=== PATIENT | female | born 1985 | race Caucasian/White ===

== ENCOUNTER 2016-03-23 15:49 | Emergency (ER) | payer BC ==
[2016-03-23 16:35] VITALS: BP 124/83
--- NOTE | 2016-03-23 17:20 | RAD ---
INDICATION: Left foot injury COMPARISON: None TECHNIQUE: AP, lateral, and oblique views were obtained. FINDINGS: At the level of the great toe the medial sesamoid is fragmented which could be related to a sesamoid fracture. The bony structures, joint spaces, and soft tissues are otherwise unremarkable. IMPRESSION: SUSPECT FRACTURE OF THE MEDIAL SESAMOID BONE
--- NOTE | 2016-03-23 17:43 | UC ---
Lower Extremity/Ankle HPI - HPI Summary HPI Summary: YESTERDAY, FELL UP STAIRS HIT LEFT FOOT ON STAIRCASE. SINCE TIME OF INJURY HAS HAD PAIN IN (DISTAL 1ST AND 2ND METATARSAL) FOOT PAD. WORSE WITH TOUGH OR WITH WEIGHT BEARING. - History of Current Complaint Chief Complaint: UC Stated Complaint: FOOT INJURY Time Seen by Provider: 03/23/16 16:24 Hx Obtained From: Patient, Family/Carding Supervisor Hx Last Menstrual Period: March 04 Onset/Duration: Sudden Onset, Lasting Days, Still Present Severity Initially: Moderate Severity Currently: Moderate Aggravating Factor(s): Standing, Ambulation Alleviating Factor(s): Rest, Elevation, Ice Able to Bear Weight: Yes - WITH PAIN - Risk Factors Gout Risk Factors: Negative DVT Risk Factors: Negative Septic Arthritis Risk Factor: Negative - Allergies/Home Medications Allergies/Adverse Reactions: Allergies Allergy/AdvReac Type Severity Reaction Status Date / Time Hydromorphone [From Dilaudid] Allergy Severe Anaphylatic Verified 03/23/16 16:35 Shock Oxycodone [From Percocet] Allergy Severe Anaphylatic Verified 03/23/16 16:35 Shock Promethazine [From Phenergan] Allergy Severe Anaphylatic Verified 03/23/16 16:35 Shock Home Medications: Home Medications Rizatriptan ODT (NF) [Maxalt-PLAY WRITER (NF)] 10 mg PO 03/23/16 [History] PMH/Surg Hx/FS Hx/Imm Hx Previously Healthy: Yes Endocrine History Of: Denies: Diabetes, Thyroid Disease Cardiovascular History Of: Denies: Cardiac Disorders, Hypertension Respiratory History Of: Denies: COPD, Asthma GI/ History Of: Denies: Ulcer - Surgical History Surgical History: Yes Surgery Procedure, Year, and Place: ; tonsils; wisdom teeth; left knee 2 arthroscopic - Family History Known Family History: Positive: None Negative: Blood Disorder, Other - NO JOINT LAXITY - Social History Occupation: Employed Full-time Lives: With Family Alcohol Use: Occasionally Substance Use Type: None Smoking Status (MU): Never Smoked Tobacco - Immunization History Most Recent Influenza Vaccination: Dec 2012 Most Recent Tetanus Shot: 05/21 Review of Systems Constitutional: Negative Skin: Negative Eyes: Negative ENT: Negative Respiratory: Negative Cardiovascular: Negative Gastrointestinal: Negative Genitourinary: Negative Motor: Negative Neurovascular: Negative Musculoskeletal: Arthralgia - LEFT FOOT, Myalgia Neurological: Negative Psychological: Negative All Other Systems Reviewed And Are Negative: Yes Physical Exam Triage Information Reviewed: Yes Appearance: Well-Appearing, No Pain Distress, Well-Nourished Vital Signs: Initial Vital Signs Temp 98.1 F 03/23/16 16:27 Pulse 82 03/23/16 16:27 Resp 16 03/23/16 16:27 BP 124/83 03/23/16 16:27 Pulse Ox 97 03/23/16 16:27 Vital Signs Reviewed: Yes Eye Exam: Normal ENT Exam: Normal ENT: Positive: Normal ENT inspection, Hearing grossly normal, Pharynx normal, TMs normal Dental Exam: Normal Neck exam: Normal Neck: Positive: Supple, Nontender, No Lymphadenopathy Respiratory Exam: Normal Respiratory: Positive: Chest non-tender, Lungs clear, Normal breath sounds, No respiratory distress, No accessory muscle use Cardiovascular Exam: Normal Cardiovascular: Positive: RRR, No Murmur, Pulses Normal Abdominal Exam: Normal Abdomen Description: Positive: Nontender, No Organomegaly Musculoskeletal: Positive: Strength Intact, ROM Intact, Edema @ - MILD EDEMA LEFT DISTAL 1ST METATARSAL, Other: - TENDER TO PALPATION LEFT DISTAL 1ST 2ND METATARSAL Neurological Exam: Normal Psychological Exam: Normal Skin Exam: Normal Lower Extremity Course/Dx - Differential Dx/Diagnosis Differential Diagnosis/HQI/PQRI: Fracture (Closed), Fracture (Open), Sprain, Strain Provider Diagnoses: CLOSED FRACTURE OF LEFT SESAMOID BONE AT ASPECT OF FIRST DITAL METATARSAL Discharge - Discharge Plan Condition: Stable Disposition: HOME Patient Education Materials: Foot Fracture in Adults (ED), Foot Contusion (ED) Referrals: Carito Oneal NP [Primary Care Provider] - Polo Franklin MD [Medical Doctor] -
== END 2016-03-23 17:50 | disposition home or self-care (01) ==
LOC: UCEAST 15:49
DX: S92.812A Other fracture of left foot, initial encounter for closed fracture (principal); Z88.5 Allergy status to narcotic agent
CPT/HCPCS: 99213; G0463

== ENCOUNTER 2016-05-15 18:11 | Emergency (ER) | payer BC ==
[2016-05-15 19:11] VITALS: BP 107/64
[2016-05-15] MEDS ORDERED: Ondansetron ODT TAB* 4 MG PO ONE ×2 (19:12→21:32)
[2016-05-15] MEDS ORDERED: NS 0.9% 1000 ML* 1,000 ML BOLUS ONE (20:07)
[2016-05-15] MEDS ORDERED: Ondansetron INJ* 2 MG/ML VIAL IV ONE (20:07)
[2016-05-15] MEDS ORDERED: cefTRIAXone VIAL(*) 1,000 MG in NS 0.9% 50 ML* 50 ML IVPB ONE (20:07)
[2016-05-15] MEDS ORDERED: Ketorolac INJ* 30 MG/ML 1 ML VIAL IV ONE (20:08)
--- NOTE | 2016-05-15 20:08 | UC ---
Throat Pain/Nasal Alexis HPI - HPI Summary HPI Summary: 30 yo female with a 2 week hx of sinus pressure and pain/post nasal drip/sore throat/ bilateral otalgia Feverish at onset has been low energy while ill facial pressure and occipital head ache symptoms worse x days now with dizziness/nausea and vomiting x 3 today unable to tolerate PO anorexic today - History of Current Complaint Chief Complaint: UCGeneralIllness Stated Complaint: HEADACHE, COUGH Time Seen by Provider: 05/15/16 19:21 Hx Obtained From: Patient Hx Last Menstrual Period: 05/06/16 Onset/Duration: Gradual Onset, Lasting Weeks - 2 Severity: Moderate Pain Intensity: 6 Pain Scale Used: 0-10 Numeric Cough: Nonproductive Associated Signs & Symptoms: Positive: Sinus Discomfort, Nasal Discharge, Fever - first day or two, Vomiting - Epiglottits Risk Factors Epiglottis Risk Factors: Negative - Allergies/Home Medications Allergies/Adverse Reactions: Allergies Allergy/AdvReac Type Severity Reaction Status Date / Time Hydromorphone [From Dilaudid] Allergy Severe Anaphylatic Verified 05/15/16 19:00 Shock Oxycodone [From Percocet] Allergy Severe Anaphylatic Verified 05/15/16 19:00 Shock Promethazine [From Phenergan] Allergy Severe Anaphylatic Verified 05/15/16 19:00 Shock Home Medications: Home Medications Pseudoephedrine TAB* [Sudafed TAB*] 30 mg PO Q6H PRN 05/15/16 [History Confirmed 05/15/16] metFORMIN* [Glucophage 1000 MG TAB *] 1,000 mg PO DAILY 05/15/16 [History Confirmed 05/15/16] PMH/Surg Hx/FS Hx/Imm Hx Previously Healthy: Yes Endocrine History Of: Denies: Diabetes, Thyroid Disease Cardiovascular History Of: Denies: Cardiac Disorders, Hypertension, Pacemaker/ICD Respiratory History Of: Denies: COPD, Asthma GI/ History Of: Denies: Ulcer, Renal Disease Neurological History Of: Reports: Migraine - Surgical History Surgical History: Yes Surgery Procedure, Year, and Place: ; tonsils; wisdom teeth; left knee 2 arthroscopic - Family History Known Family History: Positive: Hypertension Negative: Blood Disorder, Other - NO JOINT LAXITY - Social History Alcohol Use: Rare Substance Use Type: None Smoking Status (MU): Never Smoked Tobacco - Immunization History Most Recent Influenza Vaccination: Dec 2012 Most Recent Tetanus Shot: 05/21 Review of Systems Constitutional: Fever - at onset, Chills, Fatigue Skin: Negative Eyes: Negative ENT: Sore Throat, Ear Ache, Nasal Discharge Respiratory: Cough Cardiovascular: Negative Gastrointestinal: Negative Genitourinary: Negative Motor: Negative Neurovascular: Negative Musculoskeletal: Negative Neurological: Headache Psychological: Negative All Other Systems Reviewed And Are Negative: Yes Physical Exam Triage Information Reviewed: Yes Appearance: Well-Appearing, No Pain Distress, Well-Nourished Vital Signs: Initial Vital Signs Temp 98.3 F 05/15/16 19:02 Pulse 66 05/15/16 19:02 Resp 20 05/15/16 19:02 BP 107/64 05/15/16 19:02 Pulse Ox 98 05/15/16 19:02 Vital Signs Reviewed: Yes Eyes: Positive: Conjunctiva Clear ENT: Positive: Hearing grossly normal, Pharyngeal erythema, Nasal congestion, Nasal drainage, TM bulging, Other: - left >right max and ethmoid sinus tenderness. Negative: TM dull, TM red, Tonsillar swelling, Tonsillar exudate, Trismus, Muffled/hoarse voice Dental: Negative: Abscess @ Neck: Positive: Supple, Nontender, No Lymphadenopathy Respiratory: Positive: Lungs clear, Normal breath sounds, No respiratory distress, No accessory muscle use Cardiovascular: Positive: RRR, No Murmur Musculoskeletal Exam: Normal Musculoskeletal: Positive: Strength Intact, ROM Intact Neurological Exam: Normal Neurological: Positive: Alert Psychological Exam: Normal Skin Exam: Normal Re-Evaluation - Re-Evaluation First Eval Re-Evaluation Time: 21:34 Change: Improved - no headache/nausea less Throat Pain/Nasal Course/Dx - Differential Dx/Diagnosis Provider Diagnoses: acute sinusitis. dizziness/vomiting Discharge - Discharge Plan Condition: Stable Disposition: HOME Prescriptions: Cefuroxime Axetil [Ceftin 250 MG] 250 mg PO BID #20 tab Ondansetron TAB* [Zofran 4 MG Tab*] 4 mg PO Q6H PRN #10 tab PRN Reason: Nausea Patient Education Materials: Sinusitis (ED) Referrals: Carito Oneal NP [Primary Care Provider] - 3 Days (if not better) Additional Instructions: recheck here or ER for new or worsening symptoms
[2016-05-15] MEDS ORDERED: cefTRIAXone VIAL(*) 1,000 MG VIAL ONE (20:11)
== END 2016-05-15 22:01 | disposition home or self-care (01) ==
LOC: UCCORT 18:11
DX: J01.90 Acute sinusitis, unspecified (principal); R42 Dizziness and giddiness; R11.10 Vomiting, unspecified; G43.909 Migraine, unspecified, not intractable, without status migrainosus; Z88.5 Allergy status to narcotic agent
CPT/HCPCS: 96361; 96365; 96375; 99213; G0463; J0696; J1885; J2405

== ENCOUNTER 2016-07-31 21:01 | Emergency (ER) | payer BC ==
[2016-07-31 21:15] VITALS: BP 125/87
[2016-07-31] MEDS ORDERED: Ipratropium 0.5MG/2.5ML NEB* 0.5 MG/2.5 ML NEB.SOLN INH ONE (21:24)
[2016-07-31] MEDS ORDERED: predniSONE TAB* 20 MG PO ONE (21:40)
--- NOTE | 2016-07-31 21:40 | UC ---
Respiratory Complaint HPI - HPI Summary HPI Summary: Approx 2 weeks ago developed mild runny nose and dry cough. Symptoms have been very mild until cough significantly worsened in the last 1-2 days. Now constant dry cough; denies wheezing or trouble breathing. No fever, ST, facial pain, rash , or vomiting. - History of Current Complaint Chief Complaint: UCRespiratory Stated Complaint: COUGH X 2 WEEKS Time Seen by Provider: 07/31/16 21:15 Hx Obtained From: Patient Hx Last Menstrual Period: 07/06/16 ?: No Onset/Duration: Gradual Onset, Lasting Weeks Timing: Constant Severity Initially: Mild Severity Currently: Moderate Character: Cough: Nonproductive Aggravating Factors: Deep Breaths, Recumbent Position Alleviating Factors: Upright Position Associated Signs And Symptoms: Positive: Nasal Congestion. Negative: Fever, Chills, Wheezing, Calf Pain, Calf Swelling - Risk Factors Cardiac Risk Factors: Negative Pseudomonas Risk Factors: Negative Tuberculosis Risk Factors: Negative - Allergies/Home Medications Allergies/Adverse Reactions: Allergies Allergy/AdvReac Type Severity Reaction Status Date / Time Hydromorphone [From Dilaudid] Allergy Severe Anaphylatic Verified 07/31/16 21:07 Shock Oxycodone [From Percocet] Allergy Severe Anaphylatic Verified 07/31/16 21:07 Shock Promethazine [From Phenergan] Allergy Severe Anaphylatic Verified 07/31/16 21:07 Shock Home Medications: Home Medications [id number] [Mucinex Sinus-Max Day/Nig] 1 cap PRN 07/31/16 [ History] PMH/Surg Hx/FS Hx/Imm Hx Other Endocrine History: PCOS - Surgical History Surgical History: Yes Surgery Procedure, Year, and Place: ; tonsils; wisdom teeth; left knee 2 arthroscopic - Family History Known Family History: Positive: None, Hypertension Negative: Blood Disorder, Other - NO JOINT LAXITY - Social History Alcohol Use: Rare Substance Use Type: None Smoking Status (MU): Never Smoked Tobacco - Immunization History Most Recent Influenza Vaccination: 2015 Most Recent Tetanus Shot: 05/21 Most Recent Pneumonia Vaccination: n/a Review of Systems Constitutional: Negative Skin: Negative Eyes: Negative ENT: Nasal Discharge Respiratory: Cough Cardiovascular: Negative Gastrointestinal: Negative Genitourinary: Negative Motor: Negative Neurovascular: Negative Musculoskeletal: Negative Neurological: Negative Psychological: Negative All Other Systems Reviewed And Are Negative: Yes Physical Exam Triage Information Reviewed: Yes Appearance: No Pain Distress, Obese Vital Signs: Initial Vital Signs Temp 98.9 F 07/31/16 21:09 Pulse 87 07/31/16 21:09 Resp 18 07/31/16 21:09 BP 125/87 07/31/16 21:09 Pulse Ox 98 07/31/16 21:09 Vital Signs Reviewed: Yes Eye Exam: Normal Eyes: Positive: Conjunctiva Clear ENT: Positive: Hearing grossly normal, Pharynx normal, Nasal congestion, TMs normal. Negative: Nasal drainage, Tonsillar swelling, Tonsillar exudate Dental Exam: Normal Neck exam: Normal Neck: Positive: Supple, Nontender, No Lymphadenopathy Respiratory Exam: Other - constant dry cough Respiratory: Positive: Lungs clear, Normal breath sounds, No respiratory distress. Negative: Wheezing Cardiovascular Exam: Normal Cardiovascular: Positive: RRR, No Murmur Musculoskeletal Exam: Normal Neurological Exam: Normal Neurological: Positive: Alert Psychological Exam: Normal Skin Exam: Normal UC Diagnostic Evaluation - Laboratory O2 Sat by Pulse Oximetry: 98 Respiratory Course/Dx - Differential Dx/Diagnosis Provider Diagnoses: post-viral cough. elevated blood pressure due to discomfort Discharge - Discharge Plan Condition: Stable Disposition: HOME Patient Education Materials: Acute Cough (ED) Referrals: Carito Oneal NP [Primary Care Provider] - Additional Instructions: POST-VIRAL COUGH: A very common cause of persistent cough is called "post-viral cough syndrome." During a viral infection, the virus can irritate your bronchial tubes. Then even after the infection is over, you may continue to cough. Your cough is left over from your recent viral infection. You do not show evidence of a continuing viral infection,bronchitis or pneumonia. You do not need antibiotics at this time. It may be helpful to use inhaled cool mist, throat lozenges, cough medication or bronchial inhalers to open up your bronchial tubes. We expect you will be improved in a week or two. Please get back to us if you have fever, chest pain, colored sputum, blood in the sputum, wheezing or shortness of breath.
== END 2016-07-31 21:51 | disposition home or self-care (01) ==
LOC: UCCORT 21:01
DX: R05 Cough (principal); R03.0 Elevated blood-pressure reading, without diagnosis of hypertension; E28.2 Polycystic ovarian syndrome; E66.9 Obesity, unspecified; Z88.5 Allergy status to narcotic agent
CPT/HCPCS: 99212; G0463; J7512; J7644

== ENCOUNTER 2017-02-22 08:03 | Emergency (ER) | payer BC ==
[2017-02-22 08:21] VITALS: BP 114/82
--- NOTE | 2017-02-22 08:45 | ED ---
Throat Pain/Nasal Congestion - HPI Summary HPI Summary: 31 yr old female with the complaint of sinus pain and pressure, onset about two weeks ago. Complains of post nasal drip, yellow, and some coughing as well. She has had chills and nausea as well. No other complaints. - History of Current Complaint Chief Complaint: UCRespiratory Time Seen by Provider: 02/22/17 08:32 - Allergies/Home Medications Allergies/Adverse Reactions: Allergies Allergy/AdvReac Type Severity Reaction Status Date / Time Hydromorphone [From Dilaudid] Allergy Severe Anaphylatic Verified 02/22/17 08:22 Shock Oxycodone [From Percocet] Allergy Severe Anaphylatic Verified 02/22/17 08:22 Shock Promethazine [From Phenergan] Allergy Severe Anaphylatic Verified 02/22/17 08:22 Shock Home Medications: Home Medications Ibuprofen [Ibuprofen 200] 600 mg PO PRN 02/22/17 [History] PMH/Surg Hx/FS Hx/Imm Hx Endocrine/Hematology History: Denies: Hx Diabetes, Hx Thyroid Disease Cardiovascular History: Denies: Hx Hypertension, Hx Pacemaker/ICD Respiratory History: Denies: Hx Asthma, Hx Chronic Obstructive Pulmonary Disease (COPD) GI History: Denies: Hx Ulcer History: Denies: Hx Renal Disease Sensory History: Denies: Hx Hearing Aid Neurological History: Reports: Hx Migraine Psychiatric History: Denies: Hx Panic Disorder - Surgical History Surgery Procedure, Year, and Place: ; tonsils; left knee 2 arthroscopic Infectious Disease History: No Infectious Disease History: Denies: Hx Hepatitis, Hx Human Immunodeficiency Virus (HIV), History Other Infectious Disease, Traveled Outside the [place] in Last 30 Days - Family History Known Family History: Positive: None, Hypertension Negative: Blood Disorder, Other - NO JOINT LAXITY - Social History Alcohol Use: Rare Substance Use Type: Reports: None Smoking Status (MU): Never Smoked Tobacco Review of Systems Positive: Chills Positive: Sore Throat, Ear Ache, Nasal Discharge, Other - sinus pressure Positive: Cough All Other Systems Reviewed And Are Negative: Yes Physical Exam Triage Information Reviewed: Yes Vital Signs On Initial Exam: Initial Vitals Temp Pulse Resp BP Pulse Ox 98.7 F 80 16 114/82 99 02/22/17 08:16 02/22/17 08:16 02/22/17 08:16 02/22/17 08:16 02/22/17 08:16 Vital Signs Reviewed: Yes Appearance: Positive: Well-Appearing, No Pain Distress Skin: Positive: Warm, Skin Color Reflects Adequate Perfusion Eyes: Positive: EOMI ENT: Positive: Pharynx normal, TMs normal, Sinus tenderness - bilateral maxillary tenderness Neck: Positive: Nontender Respiratory/Lung Sounds: Positive: Clear to Auscultation, Breath Sounds Present Cardiovascular: Positive: RRR. Negative: Murmur Abdomen Description: Positive: Nontender Musculoskeletal: Positive: Strength/ROM Intact Neurological: Positive: Sensory/Motor Intact, Alert, Oriented to Person Place, Time, CN Intact II-III Psychiatric: Positive: Normal - [place] Coma Scale Best Eye Response: 4 - Spontaneous Best Motor Response: 6 - Obeys Commands Best Verbal Response: 5 - Oriented Diagnostics - Vital Signs Vital Signs Temp Pulse Resp BP Pulse Ox 02/22/17 08:16 98.7 F 80 16 114/82 99 - Laboratory Lab Statement: Any lab studies that have been ordered have been reviewed, and results considered in the medical decision making process. EENT Course/Dx - Course Course Of Treatment: 31 yr old female with sinus infection. Plan rx with Augmentin - Diagnoses Provider Diagnoses: Sinusitis Discharge - Discharge Plan Condition: Good Disposition: HOME Prescriptions: Amoxicillin/Clavulanate TAB* [Augmentin TAB 875*] 875 mg PO BID #20 tab Patient Education Materials: Sinusitis (ED) Referrals: Carito Oneal NP [Primary Care Provider] - 2 Days
== END 2017-02-22 08:51 | disposition home or self-care (01) ==
LOC: UCCORT 08:03
DX: J32.9 Chronic sinusitis, unspecified (principal); G43.909 Migraine, unspecified, not intractable, without status migrainosus; Z88.5 Allergy status to narcotic agent
CPT/HCPCS: 99212; G0463

== ENCOUNTER 2017-12-16 17:56 | Emergency (ER) | payer BC ==
[2017-12-16 18:29] VITALS: BP 127/88
--- NOTE | 2017-12-16 18:59 | UC ---
Throat Pain/Nasal Alexis HPI - HPI Summary HPI Summary: 32-year-old woman coming in with a chief complaint of a cough 3 weeks. It's been a dry cough. Recently she started to loosen up some phlegm is having a hard time getting out. Overall she feels somewhat ill cough is getting worse. No runny nose or sore throat no wheezing. She does feel some congestion in her chest. - History of Current Complaint Chief Complaint: UCRespiratory Stated Complaint: COUGH Time Seen by Provider: 12/16/17 18:43 Hx Last Menstrual Period: 11/17/17 Pain Intensity: 5 - Allergies/Home Medications Allergies/Adverse Reactions: Allergies Allergy/AdvReac Type Severity Reaction Status Date / Time hydromorphone [From Dilaudid] Allergy Severe Anaphylatic Verified 12/16/17 18:30 Shock oxycodone Allergy Severe Anaphylatic Verified 12/16/17 18:30 Shock promethazine [From Phenergan] Allergy Severe Anaphylatic Verified 12/16/17 18:30 Shock Home Medications: Home Medications ARIPiprazole TAB* [Abilify TAB*] 12/16/17 [History] PMH/Surg Hx/FS Hx/Imm Hx Previously Healthy: Yes - Surgical History Surgical History: Yes Surgery Procedure, Year, and Place: ; tonsils; left knee 2 arthroscopic - Family History Known Family History: Positive: None, Hypertension, Diabetes Negative: Blood Disorder, Other - NO JOINT LAXITY - Social History Alcohol Use: Rare Substance Use Type: None Smoking Status (MU): Never Smoked Tobacco - Immunization History Most Recent Influenza Vaccination: 2016 Most Recent Tetanus Shot: 05/21 Most Recent Pneumonia Vaccination: n/a Review of Systems All Other Systems Reviewed And Are Negative: Yes Constitutional: Positive: Negative Skin: Positive: Negative Eyes: Positive: Negative ENT: Positive: Negative Respiratory: Positive: Shortness Of Breath, Cough Cardiovascular: Positive: Negative Gastrointestinal: Positive: Negative Motor: Positive: Negative Neurovascular: Positive: Negative Musculoskeletal: Positive: Negative Neurological: Positive: Negative Psychological: Positive: Negative Is Patient Immunocompromised?: No Physical Exam Triage Information Reviewed: Yes Appearance: Well-Appearing, No Pain Distress, Well-Nourished Vital Signs: Initial Vital Signs Temp 98 F 12/16/17 18:25 Pulse 101 12/16/17 18:25 Resp 18 12/16/17 18:25 BP 127/88 12/16/17 18:25 Pulse Ox 100 12/16/17 18:25 Vital Signs Reviewed: Yes Eye Exam: Normal Eyes: Positive: Conjunctiva Clear ENT: Positive: Pharyngeal erythema, TMs normal Neck exam: Normal Neck: Positive: Supple Respiratory: Positive: Lungs clear, Normal breath sounds, No respiratory distress, Other: - DRY COUGH Cardiovascular: Positive: RRR Musculoskeletal Exam: Normal Musculoskeletal: Positive: Strength Intact, ROM Intact, No Edema Neurological Exam: Normal Neurological: Positive: Alert, Muscle Tone Normal Psychological Exam: Normal Psychological: Positive: Age Appropriate Behavior Skin Exam: Normal Throat Pain/Nasal Course/Dx - Course Course Of Treatment: We will treat for bronchitis with bronchospasm. We discussed the possibility of GERD causing a pneumonitis which causes the cough. Denies GERD symptoms. Patient to follow-up with regular doctor she's not improved or return here for reevaluation if needed. - Differential Dx/Diagnosis Provider Diagnoses: BRONCHITIS WITH BRONCHOSPASM Discharge - Sign-Out/Discharge Documenting (check all that apply): Patient Departure All imaging exams completed and their final reports reviewed: No Studies - Discharge Plan Condition: Stable Disposition: HOME Prescriptions: Albuterol HFA INHALER* [Ventolin HFA Inhaler*] 2 puff INH Q4H PRN #1 mdi PRN Reason: Wheezing Azithromyxin PEDRO (NF) [Z-Pedro (Zithromax) 250 mg tabs #6] 2 tab PO .TODAY, THEN 1 DAILY #6 tab Benzonatate CAP* [Tessalon 100 MG CAP*] 100 mg PO TID PRN #20 cap PRN Reason: Cough Patient Education Materials: Acute Bronchitis (ED), Bronchospasm (ED) Referrals: Carito Oneal NP [Primary Care Provider] - Additional Instructions: FOLLOW UP WITH YOUR DOCTOR IF NOT COMPLETELY IMPROVED. GET RECHECKED FOR ANY WORSENING OF YOUR CONDITION OR QUESTIONS OR CONCERNS. - Billing Disposition and Condition Condition: STABLE Disposition: Home
== END 2017-12-16 19:15 | disposition home or self-care (01) ==
LOC: UCEAST 17:56
DX: J20.9 Acute bronchitis, unspecified (principal); Z88.5 Allergy status to narcotic agent; Z88.8 Allergy status to other drugs, medicaments and biological substances
CPT/HCPCS: 99212; G0463

== ENCOUNTER 2019-02-22 05:36 | Observation (INO) | payer BC ==
[~2019-02-22 05:36] MED LIST: Buffered Lidocaine 1% SYRIN* 1 ML/SYRINGE INTRADERM ONE
[2019-02-22] MEDS ORDERED: Famotidine IV* 10 MG/ML 2 ML (20 mg) IV ONE (06:00)
[2019-02-22] MEDS ORDERED: Dexamethasone IV* 4 MG/ML 1 ML (4 MG) IV SLOW PU ONE (06:00)
[2019-02-22] MEDS ORDERED: Bupivacaine 0.25% EPI 200,000* 30 ML SDV ONE (06:18)
[2019-02-22] MEDS ORDERED: Buffered Lidocaine 1% SYRIN* 1 ML/SYRINGE INTRADERM ONE (06:49)
[2019-02-22] MEDS ORDERED: Famotidine IV* 10 MG/ML 2 ML (20 mg) ONE (06:49)
[2019-02-22] MEDS ORDERED: ceFAZolin 2 GM PREMIX in ORs 2 GM/50 ML BAG ONE (06:49)
[2019-02-22] MEDS ORDERED: Dexamethasone IV* 4 MG/ML 1 ML (4 MG) ONE (06:49)
[2019-02-22] MEDS: Lactated Ringers 1000 ML Bag* 1,000 ML IV SCH ×3 (07:06→21:11)
[2019-02-22] MEDS ORDERED: Lidocaine 2% PF * 5 ML VIAL ONE (07:20)
[2019-02-22] MEDS ORDERED: Ketorolac INJ* 30 MG/ML 1 ML VIAL ONE ×2 (07:20→15:15)
[2019-02-22] MEDS ORDERED: Midazolam* 1 MG/ML 5 ML VIAL (5 MG) ONE (07:20)
[2019-02-22] MEDS ORDERED: Propofol* 10 MG/ML 20 ML BTL ONE (07:20)
[2019-02-22] MEDS ORDERED: Ondansetron INJ* 2 MG/ML VIAL ONE (07:20)
[2019-02-22] MEDS ORDERED: Atracurium* 10 MG/ML 10 ML VIAL ONE (07:20)
[2019-02-22] MEDS ORDERED: fentaNYL* 50 MCG/ML 5 ML VIAL (250 MCG VIAL) ONE (07:20)
[2019-02-22] MEDS ORDERED: Naloxone* 0.4 MG/ML 1 ML VIAL IV PRN (07:53)
[2019-02-22] MEDS ORDERED: Ondansetron INJ* 2 MG/ML VIAL IV PRN (07:53)
[2019-02-22] MEDS ORDERED: Scopolamine 1.5 mg* PATCH TRANSDERM PRN ×2 (07:53→14:00)
[2019-02-22] MEDS ORDERED: DiMENhydriNATE IV* 50 MG/ML VIAL IV PUSH PRN (07:53)
[2019-02-22] MEDS ORDERED: fentaNYL* 50 MCG/ML 2 ML VIAL (100 MCG VIAL) ONE ×2 (08:41→10:57)
[2019-02-22] MEDS ORDERED: oxyCODONE/Acetamin 5/325 MG* TAB PO PRN (10:49)
[2019-02-22] MEDS ORDERED: DiMENhydriNATE IV* 50 MG/ML VIAL ONE (10:57)
[2019-02-22] MEDS: fentaNYL* 50 MCG/ML 2 ML VIAL (100 MCG VIAL) IV PRN ×2 (10:58→11:30)
[2019-02-22] MEDS ORDERED: Scopolamine 1.5 mg* PATCH ONE (13:11)
[2019-02-22] MEDS: Ondansetron INJ* 2 MG/ML VIAL IV PRN ×2 (13:13→21:14)
[2019-02-22] MEDS ORDERED: Morphine 10 MG/ML VIAL (1 ml) IV PRN (13:31)
[2019-02-22 13:51] LABS: Urine Appearance Clear; Urine Bilirubin Negative (Negative); Urine Blood Negative (Negative); Urine Color Straw; Urine Glucose Negative (Negative); Urine Ketones 1+ (Negative); Urine Nitrite Negative (Negative); Urine Protein Negative (Negative); Urine Specific Gravity 1.011 (1.010-1.030); Urine Urobilinogen Negative (Negative)
[2019-02-22] MEDS ORDERED: Docusate CAP* 100 MG PO PRN (14:47)
[2019-02-22] MEDS ORDERED: Ketorolac INJ* 30 MG/ML 1 ML VIAL IV ONE (15:14)
[2019-02-22] MEDS ORDERED: Famotidine IV* 10 MG/ML 2 ML (20 mg) IV SLOW PU ONE (15:17)
[2019-02-22] MEDS: Ibuprofen TAB* 600 MG PO PRN (21:14)
[2019-02-22] MEDS: Simethicone TAB* 80 MG TAB.CHEW PO PRN (21:15)
[2019-02-23] MEDS: Ibuprofen TAB* 600 MG PO PRN ×3 (03:30→19:26)
[2019-02-23] MEDS: Simethicone TAB* 80 MG TAB.CHEW PO PRN ×2 (03:30→19:27)
[2019-02-23] MEDS: Lactated Ringers 1000 ML Bag* 1,000 ML IV SCH ×2 (04:30→12:33)
[2019-02-23 07:03] LABS: ABS Lymphocytes 1.8 10^3/ul (1.0-4.8); Hematocrit 32 % (35-47); Hemoglobin 10.6 g/dL (12.0-16.0); Lymphocyte % 13.9 %; Mean Corpuscular HGB Conc 33 g/dL (31-36); Mean Corpuscular Hemoglobin 26 pg (27-31); Mean Corpuscular Volume 79 fL (80-97); Mean Platelet Volume 7.5 fL (7.4-10.4); Platelet Count 309 10^3/uL (150-450); Red Blood Count 4.02 10^6 /uL (3.70-4.87); Red Cell Distribution Width 15 % (10-15); White Blood Count 12.7 10^3/uL (3.5-10.8)
--- NOTE | 2019-02-23 09:06 | PN ---
Progress Note - Progress Note Date of Service: 02/23/19 SOAP: Subjective: [Patient is post diagnostic laparoscopy and Abdominal supracervical hysterectomy , bilateral salpingectomy on 02/22/15. She feels well this am, denies Nausea/ vomiting, pain tolerable with PO meds. Appetite is good, waiting for breakfast. Admits to flatus.] Objective: [ Vital Signs Temp Pulse Resp BP Pulse Ox 98 F 84 18 134/83 100 02/23/19 07:59 02/23/19 07:59 02/23/19 08:00 02/23/19 07:59 02/23/19 07:59 Intake and Output Last 24 Hours 02/21/19 02/22/19 02/23/19 02/24/19 06:59 06:59 06:59 06:59 Intake Total 3800 Output Total 3695 1200 Balance 105 -1200 Weight 195 lb 9.6 oz Intake: IV Fluids 2160 LR 2160 IVPB 960 LR 960 Oral 680 Output: [place] 3595 1200 Emesis 100 Other: Estimated Void Small # Voids 1 Laboratory Results - last 24 hr 02/22/19 02/23/19 13:29 06:42 WBC 12.7 H RBC 4.02 Hgb 10.6 L Hct 32 L MCV 79 L MCH 26 L MCHC 33 RDW 15 Plt Count 309 MPV 7.5 Neut % (Auto) 78.5 Lymph % (Auto) 13.9 [place] % (Auto) 7.5 Eos % (Auto) 0.0 Baso % (Auto) 0.1 Absolute Neuts (auto) 10.0 H Absolute Lymphs (auto) 1.8 Absolute Monos (auto) 1.0 H Absolute Eos (auto) 0.0 Absolute Basos (auto) 0.0 Absolute Nucleated RBC 0.0 Nucleated RBC % 0.0 Urine Color Straw Urine Appearance Clear Urine pH 8.0 Ur Specific [place] 1.011 Urine Protein Negative Urine Ketones 1+ A Urine Blood Negative Urine Nitrate Negative Urine Bilirubin Negative Urine Urobilinogen Negative Ur Leukocyte Esterase Negative Urine Glucose Negative ] Assessment: [POD #1 seems to be recovering well this am.] Plan: [OOB and ambulate, discontinue ulloa catheter, will reevaluate this afternoon.]
[2019-02-23] MEDS: Acetaminophen TAB* 325 MG PO PRN (21:55)
[2019-02-24] MEDS: Ibuprofen TAB* 600 MG PO PRN (04:45)
[2019-02-24 07:26] VITALS: BP 111/72
[2019-02-24] MEDS: Acetaminophen TAB* 325 MG PO PRN (09:01)
[2019-02-24] MEDS ORDERED: Bisacodyl EC TAB* 5 MG PO ONE (10:31)
--- NOTE | 2019-02-24 10:39 | PN ---
Progress Note - Progress Note Date of Service: 02/24/19 SOAP: Subjective: [Patient in bed comfortable, denies nausea/vomiting, has been ambulating independently, voiding without difficulty and tolerating regular diet with + flatus. Pain controlled with PO meds.] Objective: [ Vital Signs Temp Pulse Resp BP Pulse Ox 98.4 F 91 18 111/72 96 02/24/19 07:00 02/24/19 07:00 02/24/19 09:43 02/24/19 07:00 02/24/19 07:00 Lungs CTA b/l, no CVA tenderness b/l. CV RRR no abnormal heart sounds noted. Abdomen soft, appropriately tender, normal bowel sounds, mild distension Laparoscopic and suprapubic transverse incisions are clean, dry, intact with no erythema, discharge or induration.] Assessment: [POD #2 post Diagnostic laparoscopy, Abdominal supracervical hysterectomy and bilateral salpingectomy, Normal post op course, stable vital signs and exam.] Plan: [Discharge home, discharge instructions reviewed with patient and she has a f/u appt at my office this coming Wednesday03/01/2019.]
--- NOTE | 2019-02-24 23:48 | OP ---
CC: Charles Anderson MD * DATE OF OPERATION: 02/22/19 - ROOM #335 DATE OF : 81 SURGEON: Dr. Quintin Clark. FLY WORKER: Dr. Charles Anderson. ANESTHESIA: General anesthetic with endotracheal intubation. PRE-OP DIAGNOSES: Uterine fibroids, abnormal uterine bleeding and severe dysmenorrhea. POST-OP DIAGNOSES: Uterine fibroids, abnormal uterine bleeding and severe dysmenorrhea as well as possible endometriosis and dense pelvic adhesions. OPERATIVE PROCEDURES: Diagnostic laparoscopy with lysis of adhesions along with an abdominal supracervical hysterectomy and bilateral salpingectomy. ESTIMATED BLOOD LOSS: 50 cc. SPECIMEN SENT TO PATHOLOGY: Uterus fibroid and bilateral fallopian tubes. FLUIDS: She received 1200 cc of IV crystalloid fluid. URINE OUTPUT: 800 cc of clear urine. FINDINGS: On laparoscopy, the patient was noted to have an enlarged fibroid uterus with bilateral tubal and ovarian adhesions to the posterolateral pelvic sidewalls and dense adhesions from the bladder to lower uterine segment. Also, exam under anesthesia, she was noted to have a stenotic cervical os precluding insertion of a uterine manipulator. DESCRIPTION OF PROCEDURE: The patient was taken to the operating room, where she was identified. She was placed on the operating table, where a general anesthetic with endotracheal intubation was obtained without difficulty. She was then placed in the dorsal lithotomy position, prepped and draped in a normal sterile fashion. Attention was then brought on to the patient's perineum where the bladder was drained off clear urine by Sam catheter isolation. Into the vagina, a side-view speculum was introduced, the cervix was identified and grasped with a single-tooth tenaculum at anterior lip of the cervix. At this point, I proceeded to attempt to sound the uterus, however, the sound could not go through the cervix further than 3 cm due to cervical stenosis despite attempts at cervical dilation. Because of this, I introduced a sponge stick into the vagina attached to the single-tooth tenaculum in order to manipulate the uterus from below. The side-view speculum was then removed. Attention was then brought on to the patient's abdomen where a 1 cm infraumbilical skin incision was made with a knife and carried through the underlying layer of fascia. The fascia was then grasped with Cailin clamps and incised midline vertically and extended superior inferiorly sharply. Entry into the patient's abdomen and through the peritoneum was confirmed using a Jaye clamp. Through this incision, I was able to use a single-site extractor retraction system and through this retractor, a laparoscope was introduced. The patient was then placed on a Trendelenburg position and I proceeded to take a survey of the patient's anatomy laparoscopically. Laparoscopically, she was noted to have adhesions from both adnexa to posterior cul-de-sac and sidewalls. She was also noted to have an enlarged uterus with a midline fundal fibroid. The cornu of the left side of the uterus was noted to be inflamed and the area was measured about of 5 cm in diameter. The tubes were within normal limits bilaterally as well as the ovaries. The bladder was also adherent to the lower uterine segment of the uterus from the prior section. At this point, two trocars in the right and left upper quadrant of the abdomen was introduced under direct visualization. I attempted to mobilize the bowel away from the patient's pelvis and this was done successfully and at this point, I proceeded to lyse some adhesions from the fallopian tubes, in the ovary to the pelvic sidewall. However, laparoscopically this was very difficult, it would introduce risk to damage to internal organs if continued laparoscopically. I then proceeded to abort the laparoscopic procedure and left it as a diagnostic laparoscopy and removed all the laparoscopic instruments from the patient's abdomen with the fascia and umbilicus closed using 0 Polysorb suture in a running fashion. The incisions on the umbilicus, right and left upper quadrants were closed with 4-0 Monocryl subcuticular stitches. I then proceeded to perform an abdominal Pfannenstiel skin incision, which was performed about 4 cm above the symphysis pubis with a knife and carried through to the underlying layer of fascia. The fascia was then nicked in the midline and extended laterally with curved Hall scissors. The fascia was then grasped superior inferiorly with Cailin clamps and dissected off sharply from the rectus muscle. The rectus muscle was in the midline bluntly. The peritoneum was identified and grasped with pickups and entered sharply with Metzenbaum scissors and extended superiorly and inferiorly sharply. Through the abdominal incision, an Cesar retractor was introduced. The patient was then placed in Trendelenburg position. The bowel was packed away from the pelvis using moist laparotomy sponges and we then proceeded with supracervical hysterectomy. The fallopian tubes were removed bilaterally using a LigaSure Impact device in an usual fashion and they were then sent to Pathology. The patient was then brought on to the patient's right side where the round ligaments were identified and was grasped with the LigaSure Impact device, coagulated and transected. This was done as well as with the left round ligament. The utero-ovarian ligament and proximal portion of fallopian tube to the uterus were grasped with the LigaSure device bilaterally. They were coagulated and transected. A window was then made anteriorly for the broad ligament and the broad ligament was incised towards the bladder and mobilized inferiorly, a bladder flap was created using sharp dissection. The uterine arteries were then identified bilaterally. They were grasped with the LigaSure Impact device, coagulated and transected. We proceeded with dissection of the coagulation and dissection of the uterine arteries inferiorly to provide a clearance at the cervico-uterine junction in order to be able to decapitate the uterus without blood loss. The uterus and the fibroid at the fundus of the uterus at this point was removed via myomectomy to provide better visualization of the operative field. The fibroid was removed, a 0 Polysorb suture in a [id number] stitch was put the site where the fibroid was removed. We then proceeded to decapitate the uterus from the cervicouterine junction using cautery in a pure cut setting. Once the uterus was decapitated, it was sent to Pathology. We then proceeded to close the cervical stump with 0 Polysorb suture in a running fashion. The peritoneum above the cervix was also closed using 3-0 Polysorb suture in a running fashion. We then proceeded to irrigate the patient's abdomen and irrigation fluid was suctioned. All the pedicles were noted to be completely dry. At this point, we removed all the sponges from the patient's abdomen. The peritoneum was then closed using 3-0 Polysorb suture in a running fashion. The fascia was closed using 0 Polysorb suture in a running fashion. There was a 3-0 Polysorb sutures interrupted to close the Georgie's fascia and after which the skin was closed with nneka. The Sam was left in place. The manipulator from the sponge stick and single-tooth tenaculum were removed from the patient's vagina. Sponge, lap, needle counts were correct x2. She was then transferred to recovery room in a stable condition. [id number]/[facility] #: [id number] PABLO
[2019-02-25] MEDS ORDERED: Scopolamine PATCH Remove* 1 NOTE MISC PATCH OFF SCH (14:00)
== END 2019-02-24 11:15 | disposition home or self-care (01) ==
LOC: OR 05:36 → INTOOBSV 10:49 → SSU 10:49
PROVIDERS: ADMIT Obstetrics & Gynecology; ATTEND Obstetrics & Gynecology
DX: R10.2 Pelvic and perineal pain (principal); D25.1 Intramural leiomyoma of uterus; N92.0 Excessive and frequent menstruation with regular cycle; N73.9 Female pelvic inflammatory disease, unspecified; F41.9 Anxiety disorder, unspecified; M54.9 Dorsalgia, unspecified
CPT/HCPCS: 36415; 81003; 85025; 88307; 96374; 96375; 96376; A9270-GY; G0378; J0690; J1100; J1240; J1885; J2250; J2405; J2704; J3010

== ENCOUNTER 2019-04-16 09:56 | Emergency (ER) | payer BC ==
--- OUTSIDE RECORDS SUMMARY | 2019-04-16 10:18 | XMS REPORT | Summary of Care ---
:1985 Author Organization [facility] Address [address] [facility] [place] [address] Care Team Providers Name Role Phone Vishal Hood Primary Care Provider Reason for Visit Reason Comments Physical physical for foster parenting Encounter Details Date Type Department Care Team Description 03/28/2019 Office Visit [facility] Carito Oneal, Routine general medical examination at a health care facility (Primary Dx); Practice [employer] BMI 34.0-34.9,adult; [address] [place] [address] [place] [address] [phone] Allergies Active Allergy Reactions Severity Noted Date Comments Dilaudid (No Cough) Hives 04/27/2008 Oxycodone-Acetaminophen Dermatologic Reaction 04/06/2007 Phenergan Dm 04/06/2007 documented as of this encounter (statuses as of 03/28/2019) Medications Medication Sig Dispensed Refills Start Date End Date Status Naproxen Sodium Take by 0 Active (ALEVE) 220 MG mouth. Oral Cap amitriptyline Take 3 Tabs 270 Tab 3 09/13/2018 Active (ELAVIL, ENDEP) 10 by mouth MG Oral EVERY TabIndications: BEDTIME. Fibromyalgia Rizatriptan TAKE 1 TABLET 10 Tab 1 01/31/2019 Active Benzoate 5 MG Oral BY MOUTH AT TABLET DISPERSIBLE ONSET OF HEADACHE. MAY REPEAT IN 2 HOURS IF NEEDED MAX 2/DAY ibuprofen (MOTRIN) Take 600 mg 0 Active 600 MG Oral Tab by mouth EVERY SIX HOURS NEEDED for Pain. Phentermine HCl Take 1 Cap by 30 Cap 3 03/28/2019 Active 37.5 MG Oral mouth DAILY. CapIndications: Max Daily BMI Amount: 37.5 34.0-34.9,adult mg. fluoxetine Take 1 Cap by 90 Cap 3 03/28/2019 Active (PROZAC) 20 MG mouth DAILY. Oral CapIndications: Fibromyalgia mupirocin Apply to 1 Tube 0 03/28/2019 Active (BACTROBAN) 2 % affected area Apply externally on face 3 Ointment times a day for 5 days. Phentermine HCl Take 1 Cap by 30 Cap 3 09/06/2018 Discontinued 37.5 MG Oral mouth DAILY. 0 (Reorder) CapIndications: Max Daily BMI Amount: 37.5 34.0-34.9,adult mg. ciprofloxacin Take 1 Tab by 14 Tab 0 09/06/2018 Discontinued (CIPRO) 250 MG mouth TWICE 0 (Therapy Oral DAILY. Completed) TabIndications: Acute cystitis without hematuria documented as of this encounter (statuses as of 03/28/2019) Active Problems Problem Noted Date Fibromyalgia 03/28/2019 PCOS (polycystic ovarian syndrome) 04/14/2016 Migraine headache 08/30/2009 documented as of this encounter (statuses as of 03/28/2019) Resolved Problems Problem Noted Date Resolved Date Depression 05/01/2009 11/11/2009 documented as of this encounter (statuses as of 03/28/2019) Immunizations Name Administration Dates Next Due DTAP Vaccine 12/28/2011 Hepatitis B Vaccine 10/27/2001, 09/26/2001 Influenza (IM) Preservative Free 10/28/2017, 12/28/2011 MMR VACCINE 01/29/1998 documented as of this encounter Social History Tobacco Use Types Packs/Day Years Used Date Never Smoker Smokeless Tobacco: Never Used Alcohol Use Drinks/Week oz/Week Comments No 0 Standard drinks or equivalent 0.0 Sex Assigned at Date Recorded Not on file documented as of this encounter Last Filed Vital Signs Vital Sign Reading Time Taken Comments Blood Pressure 120/82 03/28/2019 3:05 PM EST Pulse 120 03/28/2019 3:05 PM EST Temperature - - Respiratory Rate - - Oxygen Saturation 97% 03/28/2019 3:05 PM EST Inhaled Oxygen Concentration - - Weight 88.9 kg (196 lb) 03/28/2019 3:05 PM EST Height 162.6 cm (5' 4") 03/28/2019 3:05 PM EST Body Mass Index 33.64 03/28/2019 3:05 PM EST documented in this encounter Patient Instructions Patient InstructionsCarito Oneal FNP - 03/28/2019 3:00 PM ESTForm completed Use bactroban for sore area near mouth Resume phentermine Prescriptions sent to your pharmacy. Follow up in 3 months with Tri Ceja NP or Annette Soto NP documented in this encounter Progress Notes Carito Oneal FNP - 03/28/2019 3:00 PM EST PATIENT: Molly Mauricio : 1985 DATE OF SERVICE: 03/28/2019 Chief Complaint Patient presents with ? Physical physical for foster parenting SUBJECTIVE: 33-y.o. 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 She is feeling well. She had supracervical hysterectomy in February and feels recovered from that. She has noted some increased moodiness lately. Taking elavil for fibromyalgia and this helps. She would like to return to phentermine for her weight. She lost good amount but stopped when had the heavy bleeding and then the hysterectomy. She has had a crusty sore area on corner of mouth on the right. She keeps picking at it. Patient Active Problem List Diagnosis Date Noted ? Fibromyalgia 03/28/2019 ? PCOS (polycystic ovarian syndrome) 04/14/2016 ? Migraine headache 08/30/2009 Current Outpatient Medications Medication Sig ? amitriptyline (ELAVIL, ENDEP) 10 MG Oral Tab Take 3 Tabs by mouth EVERY BEDTIME. ? fluoxetine (PROZAC) 20 MG Oral Cap Take 1 Cap by mouth DAILY. ? ibuprofen (MOTRIN) 600 MG Oral Tab Take 600 mg by mouth EVERY SIX HOURS NEEDED for Pain. ? mupirocin (BACTROBAN) 2 % Apply externally Ointment Apply to affected area on face 3 times aday for 5 days. ? Naproxen Sodium (ALEVE) 220 MG Oral Cap Take by mouth. ? Phentermine HCl 37.5 MG Oral Cap Take 1 Cap by mouth DAILY. Max Daily Amount: 37.5 mg. ? Rizatriptan Benzoate 5 MG Oral TABLET DISPERSIBLE TAKE 1 TABLET BY MOUTH AT ONSET OF HEADACHE. MAY REPEAT IN 2 HOURS IF NEEDED MAX 2/DAY No current facility-administered medications for this visit. Allergies: Dilaudid (no cough); Percocet [oxycodone-acetaminophen]; and Phenergan dm No LMP recorded. ROS: She denies constitutional symptoms of fatigue, weakness, weight loss or gain, fevers, night sweats. No dyspnea or chest pain on exertion. No abdominal pain, change in bowel habits, black or bloody stools. No urinary tract symptoms. [employer] ROS: no breast pain or new or enlarging lumps on self exam, no vaginal bleeding, no discharge or pelvic pain. No neurological complaints. OBJECTIVE: The patient appears well, alert, oriented x 3, in no distress. BP 120/82 (BP Location: Left arm, Patient Position: Sitting) | Pulse (!) 120 | Ht 5' 4" (1.626 m)| Wt 196 lb (88.9 kg) | SpO2 97% | BMI 33.64 kg/m ENT normal. Neck supple. No adenopathy or thyromegaly. EDGARDO. Lungs are clear, good air entry, no wheezes, rhonchi or rales. S1 and S2 normal, no murmurs, regular rate and rhythm. Abdomen soft withouttenderness, guarding, mass or organomegaly. Extremities show no edema, normal peripheral pulses. Neurological is normal, no focal findings. Wt Readings from Last 3 Encounters: 03/28/19 196 lb (88.9 kg) 09/06/18 187 lb (84.8 kg) 03/29/18 192 lb 1.6 oz (87.1 kg) BP Readings from Last 3 Encounters: 03/28/19 120/82 09/06/18 114/80 03/29/18 120/84 ASSESSMENT: ICD-9-CM ICD-10-CM 1. Routine general medical examination at a health care facility V70.0 Z00.00 2. BMI 34.0-34.9,adult V85.34 Z68.34 Phentermine HCl 37.5 MG Oral Cap 3. Fibromyalgia 729.1 M79.7 fluoxetine (PROZAC) 20 MG Oral Cap Patient Instructions Form completed Use bactroban for sore area near mouth Resume phentermine Prescriptions sent to your pharmacy. Follow up in 3 months with Tri Ceja NP or Annette Soto NP Author: MARITZA Velez 03/28/2019 15:47 documented in this encounter Plan of Treatment Health Maintenance Due Date Last Done Comments INFLUENZA VACCINE (#1) 2018 10/28/2017, 12/28/2011 DEPRESSION SCREENING 03/28/2020 03/28/2019 DTaP/Tdap/Td Vaccines (2 - 12/27/2021 12/28/2011 Tdap) HEPATITIS A IMMUNIZATION Aged Out No longer eligible based SERIES on patient's age to complete this topic HPV IMMUNIZATION SERIES Aged Out No longer eligible based on patient's age to complete this topic MENINGOCOCCAL VACCINE IMM Aged Out No longer eligible based on patient's age to complete this topic PNEUMOCOCCAL 0-64 YRS Aged Out No longer eligible based on patient's age to complete this topic documented as of this encounter Results Not on filedocumented in this encounter Visit Diagnoses Diagnosis Routine general medical examination at a health care facility BMI 34.0-34.9,adult Body Mass Index 34.0-34.9, adult Fibromyalgia Mylagia and myositis, unspecified documented in this encounter Insurance Payer Benefit Plan / Subscriber ID Effective Dates Phone Address Type Group [employer] [id number] 2014-Present [employer] Guarant[employer] Name Account Type Relation to Date of Phone Billing Patient Address Molly Mauricio Personal/Family 1985 [address] [place], [place] (Work) [id number] documented as of this encounter
[2019-04-16 10:34] VITALS: BP 107/79
--- NOTE | 2019-04-16 10:54 | UC ---
Throat Pain/Nasal Alexis HPI - HPI Summary HPI Summary: 33-year-old female with a sore throat over the past 2 days. She denies any fever or chills. - History of Current Complaint Chief Complaint: UCRespiratory Stated Complaint: SORE THROAT Time Seen by Provider: 04/16/19 10:22 Hx Obtained From: Patient Hx Last Menstrual Period: 11/17/17 ?: No Onset/Duration: Gradual Onset Severity: Mild Pain Intensity: 3 Cough: None - Allergies/Home Medications Allergies/Adverse Reactions: Allergies Allergy/AdvReac Type Severity Reaction Status Date / Time hydromorphone [From Dilaudid] Allergy Severe Rash Verified 04/16/19 10:27 oxycodone Allergy Severe Rash Verified 04/16/19 10:27 promethazine [From Phenergan] Allergy Severe Rash Verified 04/16/19 10:27 Home Medications: Home Medications Rizatriptan ODT (NF) [Maxalt-BATTERY BUILDER (NF)] 5 mg PO BID PRN 03/23/16 [History Confirmed 04/16/19] Ibuprofen [Ibuprofen 200] 800 mg PO Q6H PRN 02/22/17 [History Confirmed 04/16/19 ] Amitriptyline TAB* 30 mg PO BEDTIME 02/15/19 [History Confirmed 04/16/19] Vitamin C/Biotin [Hair, Skin and Nails Gummies] 1 each PO QAM 02/15/19 [History Confirmed 04/16/19] Amoxicillin PO (*) [Amoxicillin 875 MG (*)] 875 mg PO BID 10 Days #20 tab [Rx] FLUoxetine CAP* [PROzac CAP*] 20 mg PO DAILY 04/16/19 [History Confirmed ] PMH/Surg Hx/FS Hx/Imm Hx Previously Healthy: Yes - Surgical History Surgical History: Yes Surgery Procedure, Year, and Place: 2012; tonsils 2001-or 2002 [facility]; left knee 2 arthroscopic. hysterectomy - Family History Known Family History: Positive: None, Hypertension, Diabetes Negative: Blood Disorder, Other - NO JOINT LAXITY - Social History Alcohol Use: Rare Substance Use Type: None Smoking Status (MU): Never Smoked Tobacco - Immunization History Most Recent Influenza Vaccination: 2016 Most Recent Tetanus Shot: 05/21 Most Recent Pneumonia Vaccination: n/a Review of Systems All Other Systems Reviewed And Are Negative: Yes ENT: Positive: Sore Throat Is Patient Immunocompromised?: No Physical Exam Triage Information Reviewed: Yes Appearance: Well-Appearing, No Pain Distress, Well-Nourished Vital Signs: Initial Vital Signs Temp 99.2 F 04/16/19 10:30 Pulse 106 04/16/19 10:30 Resp 17 04/16/19 10:30 BP 107/79 04/16/19 10:30 Pulse Ox 99 04/16/19 10:30 Vital Signs Reviewed: Yes Eyes: Positive: Conjunctiva Clear ENT: Positive: Pharyngeal erythema, TMs normal, Uvula midline Neck exam: Normal Neck: Positive: Supple, Nontender, No Lymphadenopathy Respiratory: Positive: Lungs clear, Normal breath sounds, No respiratory distress, No accessory muscle use Cardiovascular: Positive: No Murmur, Pulses Normal, Brisk Capillary Refill, Tachycardia Abdomen Description: Positive: Nontender, No Organomegaly, Soft. Negative: CVA Tenderness (R), CVA Tenderness (L), Distended, Guarding, Hepatomegaly, Splenomegaly Bowel Sounds: Positive: Present Musculoskeletal Exam: Normal Neurological Exam: Normal Psychological Exam: Normal Skin Exam: Normal Throat Pain/Nasal Course/Dx - Course Course Of Treatment: Rapid strep test: Positive Patient is comfortable here and in no distress. - Differential Dx/Diagnosis Provider Diagnosis: Strep pharyngitis Discharge ED - Sign-Out/Discharge Documenting (check all that apply): Patient Departure All imaging exams completed and their final reports reviewed: No Studies - Discharge Plan Condition: Good Disposition: HOME Prescriptions: Amoxicillin PO (*) [Amoxicillin 875 MG (*)] 875 mg PO BID 10 Days #20 tab Patient Education Materials: Strep Throat (DC) Forms: *Work Release Referrals: Vishal Hood MD [Primary Care Provider] - Additional Instructions: Increase fluids, warm saltwater gargles, throat lozenges for comfort. May take Tylenol every 4 hours or ibuprofen every 8 hours for fever or pain. Change her toothbrush in 24 hours. Aloe up with your primary care provider if no improvement in 3 or 4 days. - Billing Disposition and Condition Condition: GOOD Disposition: Home
== END 2019-04-16 11:03 | disposition home or self-care (01) ==
LOC: UCCORT 09:56
DX: J02.0 Streptococcal pharyngitis (principal); Z88.5 Allergy status to narcotic agent; Z88.8 Allergy status to other drugs, medicaments and biological substances
CPT/HCPCS: 87651; 99212; G0463